=== PATIENT | female | born 1995 | race Caucasian/White ===

== ENCOUNTER 2017-05-09 09:51 | Emergency (ER) | payer MEDICAID ==
[2017-05-09 11:23] VITALS: BP 135/88
[2017-05-11 06:00] LABS: RAPID PLASMA REAGIN Non Reactive (Non Reactive)
== END 2017-05-09 11:23 | disposition home or self-care (01) ==
LOC: ED 09:51
PROVIDERS: Emergency Medicine
DX: N89.8 Other specified noninflammatory disorders of vagina (principal); J02.9 Acute pharyngitis, unspecified; Z88.0 Allergy status to penicillin
CPT/HCPCS: 36415; 87491; 87591

== ENCOUNTER 2017-09-12 20:15 | Emergency (ER) | payer MEDICAID ==
[~2017-09-12] VITALS: Ht 167.6 cm; Wt 81.6 kg
[2017-09-12 20:33] VITALS: Ht 167.6 cm; Wt 81.6 kg
[2017-09-12 21:45] VITALS: BP 133/78
== END 2017-09-12 21:45 | disposition home or self-care (01) ==
LOC: ED 20:15
DX: S93.402A Sprain of unspecified ligament of left ankle, initial encounter (principal); Z88.0 Allergy status to penicillin; X58.XXXA Exposure to other specified factors, initial encounter; Y93.89 Activity, other specified; Y92.89 Other specified places as the place of occurrence of the external cause; Y99.8 Other external cause status
CPT/HCPCS: Q0092

== ENCOUNTER 2017-09-15 19:57 | Emergency (ER) | payer MEDICAID ==
[2017-09-15 23:41] VITALS: BP 148/76
== END 2017-09-15 23:41 | disposition home or self-care (01) ==
LOC: ED 19:57
DX: S93.402A Sprain of unspecified ligament of left ankle, initial encounter (principal); X58.XXXA Exposure to other specified factors, initial encounter; Y93.89 Activity, other specified; Y99.8 Other external cause status; Y92.89 Other specified places as the place of occurrence of the external cause

== ENCOUNTER 2018-11-26 14:11 | Emergency (ER) | payer MEDICAID ==
[~2018-11-26] VITALS: Ht 170.2 cm; Wt 83.9 kg
[2018-11-26 14:59] VITALS: Ht 170.2 cm; Wt 83.9 kg
[2018-11-26 17:01] VITALS: BP 120/71
== END 2018-11-26 17:01 | disposition home or self-care (01) ==
LOC: ED 14:11
DX: M54.41 Lumbago with sciatica, right side (principal); Z88.0 Allergy status to penicillin

== ENCOUNTER 2019-01-30 17:53 | Emergency (ER) | payer MEDICAID ==
[~2019-01-30] VITALS: Ht 167.6 cm; Wt 85.3 kg
[2019-01-30 18:12] VITALS: Ht 167.6 cm; Wt 85.3 kg
[2019-01-30 19:28] VITALS: BP 137/90
== END 2019-01-30 19:28 | disposition home or self-care (01) ==
LOC: ED 17:53
DX: J02.9 Acute pharyngitis, unspecified (principal); Z88.0 Allergy status to penicillin

== ENCOUNTER 2019-06-06 15:37 | Emergency (ER) | payer MEDICAID ==
[~2019-06-06] VITALS: Ht 167.6 cm; Wt 85.7 kg
[2019-06-06 18:15] VITALS: BP 116/74
== END 2019-06-06 18:36 | disposition home or self-care (01) ==
LOC: ED 15:37
DX: M43.18 Spondylolisthesis, sacral and sacrococcygeal region (principal); R30.9 Painful micturition, unspecified; Z88.0 Allergy status to penicillin